=== PATIENT | male | born 1935 | race Caucasian/White ===

== ENCOUNTER 2022-03-19 17:00 | Inpatient (IN) | payer OTHER ==
[~2022-03-19] VITALS: Ht 172.7 cm; Wt 79.5 kg
[2022-03-19] MEDS ORDERED: MORPHINE SULFATE 2 MG/1 ML DISP.SYRIN IV ONE (17:15)
[2022-03-19] MEDS ORDERED: NITROGLYCERIN OINT 1 GM PACKET TP ONE ×2 (17:21→17:30)
[2022-03-19] MEDS ORDERED: MORPHINE SULFATE 4 MG/1 ML DISP.SYRIN ONE (17:21)
[2022-03-19 17:28] LABS: HEMATOCRIT 28.2 % (36.7-47.1); MEAN CORPUSCULAR HEMOGLOBIN 23.3 uug (23.8-33.4); MEAN CORPUSCULAR VOLUME 74.8 fL (73.0-96.2); PLATELET COUNT (AUTO) 309 K/uL (152-348)
--- NOTE | 2022-03-19 17:38 | NUR ---
"Plan to admit" per Dr Coleman. ER registration staff Beverly and Vasquez notified.
[2022-03-19 17:40] LABS: CARBON DIOXIDE 23 mmol/L (21-32); CHLORIDE 108 mmol/L (98-107); CREATININE 2.3 mg/dL (0.6-1.3); GLUCOSE 149 mg/dL (74-106); POTASSIUM 4.8 mmol/L (3.5-5.1); UREA NITROGEN, BLOOD 39 mg/dL (7-18)
[2022-03-19 17:53] LABS: ALANINE AMINOTRANSFERASE 14 U/L (16-63); ALKALINE PHOSPHATASE 58 U/L (50-136); ASPARTATE AMINOTRANSFERASE 13 U/L (15-37); BILIRUBIN,DIRECT 0.1 mg/dL (0.0-0.2); BILIRUBIN,TOTAL 0.4 mg/dL (0.2-1.0); TOTAL PROTEIN, SERUM 6.4 g/dL (6.4-8.2)
[2022-03-19] MEDS ORDERED: FUROSEMIDE 20 MG/2 ML VIAL IV ONE (18:30)
--- NOTE | 2022-03-19 18:55 | NUR ---
Patient signed the transfer acknowledgement consent (form [id number]), pending transfer information at this time.
--- NOTE | 2022-03-19 19:06 | NUR ---
Patient is attempting to void right now.
[2022-03-19 21:46] LABS: IRON, SERUM 21 ug/dL (50-175)
[2022-03-19] MEDS ORDERED: NITROGLYCERIN 0.4 MG/TAB BOTTLE SL ONE (22:00)
[2022-03-19] MEDS ORDERED: ASPIRIN 325 MG TABLET PO SCH (22:00)
[2022-03-19] MEDS ORDERED: CLONIDINE HCL 0.1 MG TABLET PO PRN (22:00)
[2022-03-19] MEDS ORDERED: MAGNESIUM HYDROXIDE 30 ML LIQUID UDC PO PRN (22:00)
[2022-03-19] MEDS ORDERED: MORPHINE SULFATE 2 MG/1 ML DISP.SYRIN IV PRN (22:00)
[2022-03-19] MEDS ORDERED: ONDANSETRON 4 MG/2 ML VIAL IV PRN (22:00)
[2022-03-19] MEDS ORDERED: REMEDY ESSENTIAL ZINC PASTE 113 GM TP PRN (22:00)
[2022-03-19] MEDS ORDERED: ACETAMINOPHEN 325 MG TABLET PO PRN (22:00)
[2022-03-19] MEDS ORDERED: HYDROMORPHONE 1 MG/1 ML DISP.SYRIN ONE (22:25)
[2022-03-19] MEDS ORDERED: HYDROMORPHONE 1 MG/1 ML DISP.SYRIN IV ONE (22:30)
[2022-03-19] MEDS ORDERED: ONDANSETRON 4 MG/2 ML VIAL IV ONE (22:30)
--- NOTE | 2022-03-19 23:17 | NUR ---
MEDICATEDPATIENT FOR PAIN AT ABOUT 2230 HOURS, B/P BEFORE PAIN MEDICATION READ 177/93. B/P CAME DOWN TO 135/71, HR.70,RR.18, OXYGEN SATURATION 97%, TEMP. 97.7. REPORT WAS GIVEN TO JOE ON 3RD FLOOR FOR CONTINUED EXPERT CARE. PATIENT RESTING WELL IN [facility] AT THIS TIME.
[2022-03-20] MEDS ORDERED: METOPROLOL TARTRATE 50 MG TABLET PO SCH (00:42)
[2022-03-20 00:50] VITALS: BP 159/89
--- NOTE | 2022-03-20 00:50 | NUR ---
Admitted a 87 years old male with Dx of NSTEMI. Patient AAOx4. In no apparent distress. Denies any SOB. On O2 at 2LPM via NC in place. O2 sat at 96%. Complain of tightness on chest area 3/10 non-radiating. Will provide Ntg SL per order. IV site on right FA intact and patent. SR with sinus arrhythmia on tele with HR of 61/min. Routine admission care done. Plan of care initiated. Safety measure initiated and call light within reached.
[2022-03-20] MEDS: ASPIRIN 325 MG TABLET PO SCH ×2 (01:13→09:02)
--- NOTE | 2022-03-20 01:13 | NUR ---
PATIENT COMPLAINT OF CHEST PAIN OF 08/19. B/P 177/93. B/P CAME DOWN TO 135/71, HR 70 RR.18, OXYGEN SATURATION 97 %, TEMP. 97.7. REPORT WAS GIVEN TO REINA EARLIER. PATIENT IN A STABLE CONDITION VIA WHEELCHAIR WAS TRANSPORTED TO ROOM 309 AND HANDED OVER TO REINA.
[2022-03-20] MEDS ORDERED: NITROGLYCERIN 0.4 MG/TAB BOTTLE SL ONE (01:15)
[2022-03-20 04:00] VITALS: BP 141/68
--- NOTE | 2022-03-20 05:08 | NUR ---
Sleeping at this time with no further complain of chest pain. SR to sinus jazmin on tele with HR ranging from 70's to mid 40's. Needs attended to and met. Safety measure maintained.
[2022-03-20 06:41] LABS: HEMATOCRIT 29.7 % (36.7-47.1); MEAN CORPUSCULAR HEMOGLOBIN 23.1 uug (23.8-33.4); MEAN CORPUSCULAR VOLUME 74.5 fL (73.0-96.2); PLATELET COUNT (AUTO) 345 K/uL (152-348)
[2022-03-20 06:59] LABS: CARBON DIOXIDE 27 mmol/L (21-32); CHLORIDE 107 mmol/L (98-107); CREATININE 2.3 mg/dL (0.6-1.3); GLUCOSE 112 mg/dL (74-106); MAGNESIUM 2.2 mg/dL (1.8-2.4); PHOSPHOROUS 5.5 mg/dL (2.5-4.9); POTASSIUM 4.8 mmol/L (3.5-5.1); UREA NITROGEN, BLOOD 36 mg/dL (7-18)
[2022-03-20] MEDS: METOPROLOL TARTRATE 25 MG TABLET PO SCH ×2 (09:08→20:47)
[2022-03-20] MEDS ORDERED: CLOPIDOGREL 75 MG TABLET PO ONE (09:15)
[2022-03-20] MEDS ORDERED: AMLODIPINE 5 MG TABLET PO SCH (09:15)
[2022-03-20] MEDS ORDERED: ENOXAPARIN SODIUM 80 MG/0.8 ML DISP.SYRIN SQ SCH (10:00)
--- NOTE | 2022-03-20 13:25 | NUR ---
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 WILL SEE PRN. CURRENT IVANA SCORE IS 22.
[2022-03-20 13:31] VITALS: BP 120/53
[2022-03-20 16:23] VITALS: BP 121/80
--- NOTE | 2022-03-20 19:36 | NUR ---
Obtained order from Dr Jimenez Nitroglycerin SL PRN order for chest pain and will carry out. Per Dr. Jimenez, If CP not relieved by 1st dose og Nitro to do EKG and if EKG abnormal or pain persist to notify him. Will carry out order.
--- NOTE | 2022-03-20 19:39 | NUR ---
pT STABLE THROUGHOUT THE DAY CHEST PAIN FREE UNTIL 1908. PT WENT TO RESTROOM ON RETURN TO BED c/O CHEST PAIN NITRO GIVEN SUBLINGUAL. VS DONE STABLE. TROPONIN ORDERED. [address] PALMER AWARE OF INCREASED TROPONINS SEE ORDERD. CALL FROM CASE MANAGERZUNILDA CERVANTES.STATED HE WAS AWARE OF THE ELEVATED TROPONINS. WILL TRANSPORT PATIENT SOON BED BECOMES AVAILABLE. CONSENT FOR TRANSFER SIGNED BY PT.
[2022-03-20] MEDS ORDERED: NITROGLYCERIN 0.4 MG/TAB BOTTLE SL PRN (19:45)
[2022-03-20 19:49] LABS: *BILIRUBIN,URIN NEGATIVE (NEGATIVE); *BLOOD, URINE NEGATIVE (NEGATIVE); *CLARITY,URINE CLEAR (CLEAR); *COLOR,URINE YELLOW (YELLOW); *KETONES,URINE NEGATIVE (NEGATIVE); *UROBILINOGEN,URINE 0.2 E.U./dl (NORMAL); LEUKOCYTE ESTERASE ,URINE NEGATIVE (NEGATIVE); NITRITE, URINE NEGATIVE (NEGATIVE); UGLUCOSE NEGATIVE (NEGATIVE)
[2022-03-20 19:57] LABS: *CREATININE,URINE 70.2 mg/dL (30-125); *URINE TOTAL PROTEIN RANDOM 35.3 mg/dL (<150/24HR)
--- NOTE | 2022-03-20 19:57 | NUR ---
Telephone call from Dakota LD Gu and informed this nurse that bed is available at [facility] and accepting maintenance craftsman will be Amy Bennett. Dakota check off list will be fax here per Brittanie. Plan shredder picker at 2200 tonight. Patient, Dr. Rosas and Dr Jimenez made aware and states understanding.
[2022-03-20 20:47] VITALS: BP 122/59
[2022-03-20] MEDS ORDERED: ATORVASTATIN 40 MG TABLET PO SCH (21:00)
--- NOTE | 2022-03-20 22:00 | NUR ---
Telephone call from Keenes LD Rebolledo, stated that patient will be draft roller picker by [facility] at 2300. Patient to go to Room 7564 telemetry unit. Telephone call to Keenes Nguyen, spoke to ADAM Rg and gave report regarding patient and states understanding. Awaiting transportation.
--- NOTE | 2022-03-20 22:36 | NUR ---
Noted IV site on right FA leaking and infiltrated. Discontinued IV on right FA. Placed new IV on right FA #[id number].
--- NOTE | 2022-03-20 23:07 | NUR ---
Patient discharge to [facility] [place], picked up by [facility] unit 115 via gurney accompanied by 2 paramedics. Report given and paper work/records provided to paramedics. Patient AAOX4. Denies any CP at this time or SOB. VS WNL. All belongings with patient.
[2022-03-21] MEDS ORDERED: CLOPIDOGREL 75 MG TABLET PO SCH (09:00)
[2022-03-21] MEDS ORDERED: ASPIRIN 81 MG TAB.CHEW PO SCH (09:00)
[2022-03-21] MEDS ORDERED: ASPIRIN 325 MG TABLET PO SCH (09:00)
== END 2022-03-20 11:07 | disposition short-term general hospital (02) | DRG 282 ==
LOC: ER 17:02 → TELE3 21:50
PROVIDERS: ADMIT Internal Medicine; ATTEND Internal Medicine
DX: I25.110 Atherosclerotic heart disease of native coronary artery with unstable angina pectoris (principal); I21.A1 Myocardial infarction type 2; I25.2 Old myocardial infarction; Z79.82 Long term (current) use of aspirin; Z98.61 Coronary angioplasty status; D50.0 Iron deficiency anemia secondary to blood loss (chronic); I12.9 Hypertensive chronic kidney disease with stage 1 through stage 4 chronic kidney disease, or unspecified chronic kidney disease; N18.30 Chronic kidney disease, stage 3 unspecified
CPT/HCPCS: 36415; 71045; 83550; 83735; 84100; 84156; 84300; 84484; 85025; 93005; 93307; A4663; G0378; J1170; J1650; J1940; J2270; J2405